=== PATIENT | female | born 1970 | race Caucasian/White ===

== ENCOUNTER → 2025-08-20 08:45 | Outpatient (REF) | payer BC, SELFPAY ==
[2025-08-20 10:15] LABS: ALT (SGPT) 21 U/L (0-35); AST (SGOT) 21 U/L (14-36); Albumin 4.9 g/dl (3.5-5.0); Alkaline Phosphatase 75 U/L (38-126); Blood Urea Nitrogen 15 mg/dl (7-17); C-Reactive Protein 8.50 mg/L (0.0-10.00); Calcium 9.7 mg/dl (8.4-10.2); Carbon Dioxide 28 mmol/L (22-30); Chloride 105 mmol/L (98-107); Glucose 96 mg/dl (70-99); HDL Cholesterol 53 mg/dl; LDL Cholesterol, Calculated 172 mg/dl; Potassium 4.7 mmol/L (3.5-5.1); Sodium 141 mmol/L (135-145); Total Protein 7.7 g/dl (6.3-8.2); Very Low Density Lipoprotein 32 mg/dl (0-30); eGFR > 60.00
[2025-08-20 10:19] LABS: Prealbumin (Transthyretin) 29.3 mg/dl (17.6-36.0)
[2025-08-20 10:23] LABS: Hematocrit 43.3 % (37.0-47.0); Hemoglobin 14.0 g/dL (12.0-16.0); Mean Corp Hgb Conc. 32.3 g/dL (33.0-37.0); Mean Corpuscular Volume 88.4 fL (81.0-99.0); Nucleated Red Blood Cells % 0 %; Platelet Count 287 10^3/uL (130-400); Red Cell Dist. Width 12.4 % (11.5-14.5)
[2025-08-20 10:33] LABS: Vitamin D, 25-OH*** 34.6 ng/mL (30-80)
[2025-08-20 10:46] LABS: TSH 1.62 uIU/ml (0.47-4.68)
[2025-08-20 11:28] LABS: Urine Character Clear (Clear)
[2025-08-20 12:15] LABS: Glycohemoglobin (HgbA1c) 5.6 % (4.0-5.9)
[2025-08-20 12:41] LABS: Urine Red Blood Cell 0-2 /HPF (0-2)
[2025-08-20 12:42] LABS: Urine White Cell 0-2 /HPF (0-5)
== END ==
LOC: RCS 08:45
PROVIDERS: ATTENDING PHYSICIAN Internal Medicine Geriatric Medicine
DX: Z76.89 Persons encountering health services in other specified circumstances (principal); Z13.31 Encounter for screening for depression; E78.5 Hyperlipidemia, unspecified; E55.9 Vitamin D deficiency, unspecified; R73.09 Other abnormal glucose
CPT/HCPCS: 36415; 80053; 80061; 81003; 81015; 82306; 83036; 84134; 84155; 84165; 84443; 85025; 86140; 93005